=== PATIENT | male | born 1955 | race Caucasian/White ===

== ENCOUNTER → 2017-03-23 | Outpatient (CLI) | payer OTHER ==
[~2017-03-23] MED LIST: ACETAMINOPHN-T1 EACH PO; AMARYL2 MG PO; ASPIRIN325 MG PO; Aspirin E.C. PO; CLOPIDOGREL75 MG PO; GLUCOPHAGE500 MG PO; JANUVIA100 MG PO; LANTUS 10100 UNITS/ SC; LEVEMIR FL100 UNIT/1 SC; LEVOTHYROXINE175 MCG PO; LOPRESSOR25 MG PO; METFORMIN HCL500 MG PO; NEXIUM40 MG PO; NIACIN500 MG PO; PRAVACHOL40 MG PO; PRAVASTATIN SOD80 MG PO; PRINIVIL5 MG PO; ST. JOSEPH ASPI81 MG PO; SYNTHROID25 MCG PO; TIROSINT13 MCG PO; TRICOR145 MG PO; TRICOR48 MG PO; TRIGLIDE160 MG PO
== END | disposition home or self-care (01) ==
LOC: MRI 12:58 → RAD 13:30 → MRI 13:30
DX: M75.122 Complete rotator cuff tear or rupture of left shoulder, not specified as traumatic (principal); S46.012A Strain of muscle(s) and tendon(s) of the rotator cuff of left shoulder, initial encounter; S43.492A Other sprain of left shoulder joint, initial encounter
CPT/HCPCS: 73040; 73222

== ENCOUNTER 2018-04-12 05:34 | Day surgery (SDC) | payer OTHER ==
[~2018-04-12] VITALS: Ht 185.4 cm; Wt 102.1 kg
[~2018-04-12 05:34] MED LIST changes: +LEVO-T100 MCG PO; -LEVOTHYROXINE175 MCG PO; +LEXAPRO10 MG PO; +LITE COAT ASPI325 M1 PO; +OXYMORPHONE HCL10 M1 PO; +PERCOCET 5/31 TABLET PO; +PLAVIX75 MG PO; -ST. JOSEPH ASPI81 MG PO; +TOUJEO SOL300 UNIT/1 SC
[2018-04-12] MEDS ORDERED: LYRICA75 MG PO (06:14)
[2018-04-12 07:57] VITALS: BP 128/68
[2018-04-12 19:51] VITALS: BP 135/73
[2018-04-12 23:28] VITALS: BP 110/64
[2018-04-13 06:13] LABS: HEMATOCRIT 29.2 % (38.0-50.0); MCV 88.2 FL (86-99)
[2018-04-13 06:21] LABS: HEMOGLOBIN 10.1 G/DL (12.5-16.6)
[2018-04-13 07:42] VITALS: BP 107/60
== END 2018-04-13 12:44 | disposition home or self-care (01) ==
LOC: SDC 05:34 → 2SOUTH 18:39 → ENRESERV 18:40 → 3EAST 19:45
PROVIDERS: Orthopaedic Surgery
PROC: 0RRK00Z Replacement of Left Shoulder Joint with Reverse Ball and Socket Synthetic Substitute, Open Approach (ICD-10-PCS; principal; 2018-04-12)
DX: M75.122 Complete rotator cuff tear or rupture of left shoulder, not specified as traumatic (principal); M25.812 Other specified joint disorders, left shoulder; M19.012 Primary osteoarthritis, left shoulder; E11.9 Type 2 diabetes mellitus without complications; Z79.4 Long term (current) use of insulin; Z79.82 Long term (current) use of aspirin; I10 Essential (primary) hypertension; I25.10 Atherosclerotic heart disease of native coronary artery without angina pectoris; I25.2 Old myocardial infarction; Z95.5 Presence of coronary angioplasty implant and graft; E03.9 Hypothyroidism, unspecified; E78.5 Hyperlipidemia, unspecified; Z82.49 Family history of ischemic heart disease and other diseases of the circulatory system
CPT/HCPCS: 73020; 82948; 85014; 85018; C1713; G0378; J0131; J0690; J2250; J2405; J2710; J2795; J3010; J3370; J7030; J7050; J7643